=== PATIENT | male | born 1965 | race African-American/Black ===

== ENCOUNTER 2017-02-09 20:38 | Emergency (ER) | payer BC ==
[~2017-02-09] VITALS: Ht 185.4 cm; Wt 136.1 kg
[~2017-02-09 20:38] MED LIST: BACTRIM-DS1 EA ORAL; COREG25 MG ORAL; HYDROCHLOROTHIA25 MG ORAL; IBUPROFEN800 MG ORAL; PROZAC20 MG ORAL
[2017-02-09] MEDS ORDERED: Oxycodone/Acetaminophen 5-325 ORAL ONE (21:15)
[2017-02-09] MEDS ORDERED: Ketorolac 60mg Inj IM ONE (21:15)
[2017-02-09 21:36] VITALS: BP 153/94
[2017-02-09] MEDS ORDERED: Mylanta II UD 30ml ORAL ONE (22:15)
[2017-02-09 22:44] VITALS: BP 156/91
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
[2017-02-09] MEDS ORDERED: HYDROCHLOROTHIA25 MG ORAL (23:34)
[2017-02-09] MEDS ORDERED: NORCO 10-325 T1 EACH ORAL (23:34)
[2017-02-09] MEDS ORDERED: CARVEDILOL25 MG ORAL (23:34)
[2017-02-09] MEDS ORDERED: IBUPROFEN600 MG ORAL (23:34)
[2017-02-09 23:58] VITALS: BP 155/86
[2017-02-09 23:59] VITALS: BP 156/91
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
== END 2017-02-09 23:59 | disposition home or self-care (01) ==
LOC: EMR 21:19
DX: S83.92XA Sprain of unspecified site of left knee, initial encounter (principal); X50.1XXA Overexertion from prolonged static or awkward postures, initial encounter; Y92.89 Other specified places as the place of occurrence of the external cause; I10 Essential (primary) hypertension; Z88.0 Allergy status to penicillin; F17.200 Nicotine dependence, unspecified, uncomplicated; Z18.9 Retained foreign body fragments, unspecified material
CPT/HCPCS: 29530; 72040; 96372; 99284

== ENCOUNTER 2017-03-23 22:02 | Emergency (ER) | payer BC ==
[~2017-03-23] VITALS: Ht 182.9 cm; Wt 136.1 kg
[~2017-03-23 22:02] MED LIST changes: +CARVEDILOL25 MG ORAL; +IBUPROFEN600 MG ORAL; +NORCO 10-325 T1 EACH ORAL
[2017-03-23 22:30] VITALS: BP 161/96
--- NOTE | 2017-03-23 22:33 | Emergency Room Report ---
History of Present Illness General Chief Complaint: Overdose Source: Patient Present Illness HPI Patient 51-year-old male presented after having ingested multiple Tylenol pills 500 mg. Patient stated that he had multiple different ingestions over approximately one day. The patient stated that he took approximately 35 total pills for increased pain . The patient stated that he activities to related to pain. He denied suicidal thoughts. Allergies: Coded Allergies: PENICILLINS (Unverified Allergy, Severe, Hives, 03/21/16) Patient History Reviewed Nursing Documentation: PMH: Agreed, PSxH: Agreed Nursing Documentation-PMH Hx Hypertension: Yes Review of Systems All Other Systems: negative except mentioned in HPI Physical Exam Vital Signs Date Time Temp Pulse Resp B/P Pulse Ox O2 Delivery O2 Flow Rate FiO2 03/23/17 22:18 97.9 66 16 161/96 98 Room Air Sp02 EP Interpretation: reviewed, normal General Appearance: normal inspection, well appearing, no apparent distress, alert, obese Head: atraumatic ENT: normal ENT inspection, hearing grossly normal, normal voice Neck: normal inspection, full range of motion, supple, no bony tend Respiratory: normal inspection, lungs clear, normal breath sounds, no respiratory distress, no retraction, no wheezing Cardiovascular #1: regular rate, rhythm, no edema Gastrointestinal: normal inspection, normal bowel sounds, non tender, soft, no guarding, no hernia Genitourinary: no CVA tenderness Musculoskeletal: normal inspection, back normal, normal range of motion Neurologic: normal inspection, alert, responsive, speech normal Psychiatric: normal inspection, judgement/insight normal, mood/affect normal Skin: normal inspection, normal color, no rash Medical Decision Making Diagnostic Impression: Primary Impression: Chronic pain Additional Impression: Tylenol ingestion ER Course Patient presented for reported overdose of Tylenol. Differential diagnosis included was not limited to toxic Tylenol ingestion, chronic ingestion, liver failure, among others. The patient was discussed with poison control the patient was noted to have concerning ingestion which is near toxic range. The patient's ingestion was noted to be over 1 day. The poison control recommended a single dose of IV Mucomyst. Laboratory testing showed a negative acetaminophen level as well as normal liver function tests. The patient was given a single dose of IV Mucomyst after rediscussion with poison control. Patient was also given medications for headache and chronic pain. Per discussion with poison control this ingestion did not require multiple doses of Mucomyst IV. Labs Test 03/23/17 22:50 White Blood Count 7.8 K/UL (4.8-10.8) Red Blood Count 5.69 M/UL (4.70-6.10) Hemoglobin 16.0 G/DL (14.2-18.0) Hematocrit 47.1 % (42.0-52.0) Mean Corpuscular Volume 83 FL (80-99) Mean Corpuscular Hemoglobin 28.2 PG (27.0-31.0) Mean Corpuscular Hemoglobin Concent 34.0 G/DL (32.0-36.0) Red Cell Distribution Width 14.9 % (11.6-14.8) Platelet Count 269 K/UL (150-450) Mean Platelet Volume 6.8 FL (6.5-10.1) Neutrophils (%) (Auto) 41.5 % (45.0-75.0) Lymphocytes (%) (Auto) 42.3 % (20.0-45.0) Monocytes (%) (Auto) 6.8 % (1.0-10.0) Eosinophils (%) (Auto) 6.8 % (0.0-3.0) Basophils (%) (Auto) 2.6 % (0.0-2.0) Prothrombin Time 9.5 SEC (9.30-11.50) Prothromb Time International Ratio 0.9 (0.9-1.1) Activated Partial Thromboplast Time 28 SEC (23-33) Urine Color Yellow Urine Appearance Clear Urine pH 7 (4.5-8.0) Urine Specific Damar 1.010 (1.005-1.035) Urine Protein Negative (NEGATIVE) Urine Glucose (UA) Negative (NEGATIVE) Urine Ketones Negative (NEGATIVE) Urine Occult Blood Negative (NEGATIVE) Urine Nitrite Negative (NEGATIVE) Urine Bilirubin Negative (NEGATIVE) Urine Urobilinogen Normal MG/DL (0.0-1.0) Urine Leukocyte Esterase Negative (NEGATIVE) Sodium Level 137 mEQ/L (135-145) Potassium Level 4.0 mEQ/L (3.4-4.9) Chloride Level 95 mEQ/L (98-107) Carbon Dioxide Level 29 mEQ/L (20-30) Anion Gap 13 (5-15) Blood Urea Nitrogen 11 mg/dL (7-23) Creatinine 0.9 mg/dL (0.7-1.2) Estimat Glomerular Filtration Rate > 60 mL/min (>60) Glucose Level 93 mg/dL (74-106) Calcium Level 8.9 mg/dL (8.6-10.2) Total Bilirubin < 0.2 mg/dL (0.0-1.2) Aspartate Amino Transf (AST/SGOT) 24 U/L (5-40) Alanine Aminotransferase (ALT/SGPT) 22 U/L (3-41) Alkaline Phosphatase 52 U/L (40-129) Total Protein 6.8 g/dL (6.6-8.7) Albumin 3.9 g/dL (3.5-5.2) Globulin 2.9 g/dL Albumin/Globulin Ratio 1.3 (1.0-2.7) Lipase 13 U/L (< 60) Acetaminophen Level < 10 ug/mL (10-30) Serum Alcohol 10 mg/dL Last Vital Signs Date Time Temp Pulse Resp B/P Pulse Ox O2 Delivery O2 Flow Rate FiO2 03/23/17 22:18 97.9 66 16 161/96 98 Room Air Status: improved Disposition: HOME, SELF-CARE Condition: Stable ChrisIno Mar 23, 2017 22:33
[2017-03-23] MEDS ORDERED: ACETYLCYSTEINE IVPB ONE (22:45)
[2017-03-23] MEDS ORDERED: D5W IVPB ONE (22:45)
[2017-03-23 23:06] LABS: APPEARANCE,URINE CLEAR; KETONES,URINE NEGATIVE (NEGATIVE); LEUKOCYTE ESTERASE ,URINE NEGATIVE (NEGATIVE); NITRITE,URINE NEGATIVE (NEGATIVE); PH,URINE 7 (4.5-8.0); PROTEIN,URINE NEGATIVE (NEGATIVE); UROBILINOGEN,URINE NORMAL MG/DL (0.0-1.0)
[2017-03-23 23:14] LABS: BASOPHILS % (AUTO) 2.6 % (0.0-2.0); EOSINOPHILS % (AUTO) 6.8 % (0.0-3.0); LYMPHOCYTES % (AUTO) 42.3 % (20.0-45.0); MEAN CORPUSCULAR HEMOGLOBIN 28.2 PG (27.0-31.0); MEAN CORPUSCULAR VOLUME 83 FL (80-99); MEAN PLATELET VOLUME 6.8 FL (6.5-10.1); MONOCYTES % (AUTO) 6.8 % (1.0-10.0); NEUTROPHILS % (AUTO) 41.5 % (45.0-75.0); PLATELET COUNT 269 K/UL (150-450); RED BLOOD COUNT 5.69 M/UL (4.70-6.10); RED CELL DISTRIBUTION WIDTH 14.9 % (11.6-14.8); WHITE BLOOD COUNT 7.8 K/UL (4.8-10.8)
[2017-03-23 23:20] LABS: INR 0.9 (0.9-1.1); PROTHROMBIN TIME 9.5 SEC (9.30-11.50)
[2017-03-23 23:21] LABS: ACETAMINOPHEN < 10 ug/mL (10-30); ALANINE AMINOTRANSFERASE 22 U/L (3-41); ALBUMIN/GLOBULIN RATIO 1.3 (1.0-2.7); ANION GAP 13 (5-15); ASPARTATE AMINO TRANSFERASE 24 U/L (5-40); CALCIUM 8.9 mg/dL (8.6-10.2); CARBON DIOXIDE 29 mEQ/L (20-30); CHLORIDE 95 mEQ/L (98-107); CREATININE 0.9 mg/dL (0.7-1.2); GLOMERULAR FILTRATION RATE > 60 mL/min (>60); HEMOLYSIS 4; LIPASE 13 U/L (< 60); SODIUM 137 mEQ/L (135-145); TOTAL PROTEIN 6.8 g/dL (6.6-8.7)
[2017-03-23] MEDS ORDERED: Metoclopramide 10mg/2ml Inj IVP ONE (23:45)
[2017-03-23] MEDS ORDERED: DiphenhydrAMINE 50mg/ml Inj IVP ONE (23:45)
[2017-03-24 01:14] VITALS: BP 152/89
[2017-03-24] MEDS ORDERED: Morphine Sulfate 4mg/ml Inj IVP ONE (01:15)
[2017-03-24] MEDS ORDERED: Solu-MEDROL 125mg Inj IVP ONE (02:00)
[2017-03-24] MEDS ORDERED: DiphenhydrAMINE 50mg/ml Inj IVP ONE (02:00)
[2017-03-24 02:24] VITALS: BP 145/92
[2017-03-24 02:25] VITALS: BP 152/89
--- NOTE | 2017-03-26 01:06 | Cardiology Report ---
APPROVED REPORT EKG Measurement Heart [id number] Normal sinus rhythm Normal ECG
== END 2017-03-24 02:25 | disposition home or self-care (01) ==
LOC: EMR 22:24
DX: T39.1X5A Adverse effect of 4-Aminophenol derivatives, initial encounter (principal); G89.29 Other chronic pain; Y92.9 Unspecified place or not applicable; I10 Essential (primary) hypertension; Z88.0 Allergy status to penicillin
CPT/HCPCS: 36415; 80053; 81003; 83690; 85025; 85610; 85730; 93005; 96360; 96374; 96375; 99284; G0480; J0132; J1200; J2270; J2405; J2765; J2930; 80329

== ENCOUNTER 2019-08-02 10:05 | Emergency (ER) | payer BC, OTHER ==
[~2019-08-02] VITALS: Ht 182.9 cm; Wt 147.4 kg
[2019-08-02 10:12] VITALS: BP 148/84
[2019-08-02] MEDS ORDERED: IRBESARTAN-HCT1 EAC2 PO (10:15)
--- NOTE | 2019-08-02 10:15 | NUR ---
ED Nurse Note: Patient walked into ED c/o an episode of hypertension, patient states prior to arrival here, his blood pressure was in the "170s" taken at home. patient is alert and oriented x4, complains of frontal headache, denies any blurred vision, denies nausea or vomiting. will continue to monitor
[2019-08-02 10:50] VITALS: BP 150/80
--- NOTE | 2019-08-02 10:50 | NUR ---
ER DISCHARGE NOTE: Patient is cleared to be discharged per ERMD, pt is aox4, on room air, with stable vital signs. pt was given dc instructions, pt was able to verbalize understanding, pt id band removed without complications. pt is able to ambulate with steady gait. pt took all belongings.
--- NOTE | 2019-08-02 10:54 | Emergency Room Report ---
History of Present Illness General Chief Complaint: Hypertension Source: Medical Record Present Illness HPI Patient is a 54-year-old male presents after increased blood pressure. Patient had recently been seen by his physician and had recently been started on hydrochlorothiazide and ibesartan. He denies any chest pain or shortness of breath. He has not had been having any increased leg pain or swelling. He had a previous history of hypertension and previously been on Coreg. He reports having a gradual increase in weight. He denies any visual changes. Reports having mild headache. Denies any vomiting. Patient had taken medication for the first time last night. Allergies: Coded Allergies: PENICILLINS (Unverified Allergy, Severe, Hives, 03/21/16) Patient History Past Medical History: HTN Reviewed Nursing Documentation: PMH: Agreed; PSxH: Agreed Nursing Documentation-PMH Past Medical History: No History, Except For Hx Hypertension: Yes Review of Systems All Other Systems: negative except mentioned in HPI Physical Exam Vital Signs Date Time Temp Pulse Resp B/P (MAP) Pulse Ox O2 Delivery O2 Flow Rate FiO2 08/02/19 10:10 98.1 75 18 148/84 (105) 95 Room Air General Appearance: well appearing, no apparent distress, alert, GCS 15, obese Head: normocephalic, atraumatic ENT: hearing grossly normal, normal voice Neck: full range of motion, supple Respiratory: chest non-tender, lungs clear, normal breath sounds, no respiratory distress, speaking full sentences Cardiovascular #1: normal inspection, edema - Trace Gastrointestinal: normal inspection, non tender, soft Musculoskeletal: normal inspection, no calf tenderness Neurologic: normal inspection, alert, oriented x3, responsive, normal gait Psychiatric: normal inspection, mood/affect normal Skin: normal inspection, no rash Medical Decision Making Diagnostic Impression: Primary Impression: HTN (hypertension) ER Course Patient present for hypertension. Differential diagnosis include was not limited to essential hypertension, heart failure, medication noncompliance among others. Patient has a benign exam and does not appear to require any imaging or laboratory testing at this time. EKG interpreted by me showed normal sinus rhythm with a rate of [address] or T wave changes. Patient appears to be stable for outpatient follow-up with his primary care physician. Blood pressure was noted to be in the 150s. Patient was advised to return if he had any worsening of headache, visual changes, chest pain or shortness of breath or other concerns. EKG Diagnostic Results Rate: normal - 62 Rhythm: NSR ST Segments: no acute changes Last Vital Signs Date Time Temp Pulse Resp B/P (MAP) Pulse Ox O2 Delivery O2 Flow Rate FiO2 08/02/19 10:10 98.1 75 18 148/84 (105) 95 Room Air Status: improved Disposition: HOME, SELF-CARE Condition: Stable Patient Instructions: Hypertension, [id number] Additional Instructions: Follow up with your primary care doctor. Return if you develop any visual changes, shortness of breath, chest pain or other concerns. Ino Perez MD Aug 02, 2019 10:53
--- NOTE | 2019-08-03 17:16 | Cardiology Report ---
APPROVED REPORT EKG Measurement Heart [id number] Normal sinus rhythm with sinus arrhythmia Cannot rule out Anterior infarct, age undetermined Abnormal ECG
== END 2019-08-02 10:50 | disposition home or self-care (01) ==
LOC: EMR 10:32
DX: I10 Essential (primary) hypertension (principal); Z88.0 Allergy status to penicillin
CPT/HCPCS: 93005; Z7502; 99282